=== PATIENT | male | born 1945 | race Caucasian/White ===

== ENCOUNTER 2016-11-26 07:59 | Emergency (ER) | payer MEDICARE, BC ==
[2016-11-26 08:41] LABS: BASOPHIL# 0.1 X 10^3uL (0.0-0.1); EOSINOPHILS 5.1 % (0.0-6.0); EOSINOPHILS# 0.5 X 10^3uL (0.0-0.4); HEMATOCRIT 39.1 % (42.0-54.0); LYMPHOCYTES 18.1 % (20.0-40.0); LYMPHOCYTES# 1.9 X 10^3uL (0.8-3.8); MEAN CORPUS. HGB CONCENTRATION 32.2 g/dL (32.0-36.0); MEAN CORPUSCULAR HEMOGLOBIN 26.4 pg (29.0-35.0); MONOCYTES# 1.1 X 10^3uL (0.2-1.0); NEUTROPHILS 65.1 % (54.0-75.0); NEUTROPHILS# 7.1 X 10^3uL (2.6-6.7); RED BLOOD COUNT 4.77 X 10^6uL (4.20-6.10); RED CELL DISTRIBUTION WIDTH 13.7 % (11.5-14.5); WHITE BLOOD COUNT 10.7 X 10^3uL (3.9-10.7)
[2016-11-26 08:42] LABS: CALCIUM 8.6 mg/dL (8.4-10.2); CREATININE 3.2 mg/dL (0.7-1.3); HEMOGLOBIN 12.6 g/dL (14.0-18.0); MAGNESIUM 1.8 mg/dL (1.6-2.3); MONOCYTES 10.7 % (2.0-10.0); POTASSIUM 4.9 mmol/L (3.5-5.1)
[2016-11-26 08:46] LABS: INR 2.3
[2016-11-26 08:54] LABS: TROPONIN I 0.013 ng/mL (0.00-0.034)
--- NOTE | 2016-11-26 10:41 | ER PHYSICIAN DOCUMENTATION ---
Physician Documentation [facility] Name:Rafael Acevedo Age:71 yrs Sex:Male :1945 Arrival Date:11/26/2016 Time:07:59 Bed4 Private MD:Elizabeth Mcwilliams ED, Scott Disposition: 11/26/16 09:39 Transfer ordered to [facility]. Diagnosis are Near Syncope: Postural, CHF (Congestive Heart Failure), Chronic Renal Failure/Insufficiency, End Stage Renal Disease. - Reason for transfer: Specialty. - Accepting physician is Dr. Faria. - Condition is Critical. - Problem is an acute exacerbation. - Symptoms are unchanged. COBRA Form completed? Yes Transfer - Mode of Transportation Helicopter HPI: 11/26 09:31 This 71 yrs old Male presents to ER via EMS with complaints of Dizziness. sc 09:31 The patient has experienced near-syncope, almost passed out. Onset: The va symptom(s)/episode began/occurred this morning. 09:32 Duration: This was a single episode. Context: occurred at home. Associated injury: The va patient did not suffer any apparent associated injury. Associated signs and symptoms: Pertinent positives: lightheadedness. Historical: - Allergies: No known drug Allergies; - Home Meds: 1. Novolin 70/30 [place] Sub-Q 2. Potassium Chloride Oral 3. Coumadin Oral 4. Folbig 5. Zolpidem Tartrate Oral 6. Omeprazole Oral 7. Furosemide Oral 8. Nitrostat SL 9. Triamcinolone Acetonide Topical 10. Aspirin Oral 11. Simvastatin 12. oxygen 2L/min at night only 13. levothyroxine oral 14. losartan oral 15. carvedilol oral - PMHx: Knee Contusion (October 15, 2016); CAD; CHF; DIABETES - IDDM; ATRIAL FIB; ARTHRITIS; KIDNEY STONES; Chest Pain (July 06, 2016); ANEMIA (July 06, 2016); Acute Renal/Kidney Failure, Nontraumatic (July 06, 2016); GERD; cardiac stents; - PSHx: Appendectomy; - Tetanus: Other NA today. - Ebola Screening: : No symptoms or risks identified at this time. . - Immunization history: Pneumococcal vaccine is up to date, Flu Vaccine < 1 year. - Social history: Smoking status: Patient states was never smoker of tobacco. Patient/guardian denies using alcohol. ROS: 09:34 Eyes: Negative for injury, pain, redness, and discharge. sc ENT: Negative for injury, pain, and discharge. Neck: Negative for injury, pain, and swelling. Respiratory: Negative for shortness of breath, cough, wheezing, and pleuritic chest pain. Abdomen/GI: Negative for abdominal pain, nausea, vomiting, diarrhea, and constipation. Back: Negative for injury and pain. MS/Extremity: Negative for injury and deformity. 09:34 Skin: Negative for injury, rash, and discoloration. sc 09:34 Constitutional: Positive for fatigue, malaise. 09:34 Cardiovascular: Positive for edema. 09:34 Neuro: Positive for near syncope. Exam: 09:34 Abdomen/GI: Inspection: abdomen appears normal, Bowel sounds: normal. sc Head/Face: Normocephalic, atraumatic. Eyes: Pupils equal round and reactive to light, extra-ocular motions intact. Lids and lashes normal. Conjunctiva and sclera are non-icteric and not injected. Cornea within normal limits. Periorbital areas with no swelling, redness, or edema. ENT: Nares patent. No nasal discharge, no septal abnormalities noted. Tympanic membranes are normal and external auditory canals are clear. Oropharynx with no redness, swelling, or masses, exudates, or evidence of obstruction, uvula midline. Mucous membranes moist. Neck: Trachea midline, no thyromegaly or masses palpated, and no cervical lymphadenopathy. Supple, full range of motion without nuchal rigidity, or vertebral point tenderness. No meningismus. Chest/axilla: Normal chest wall appearance and motion. Nontender with no deformity. No lesions are appreciated. Respiratory: Lungs have equal breath sounds bilaterally, clear to auscultation and percussion. No rales, rhonchi or wheezes noted. No increased work of breathing, no retractions or nasal flaring. Back: No spinal tenderness. No costovertebral tenderness. Full range of motion. 09:34 Skin: Warm, dry with normal turgor. Normal color with no rashes, no lesions, and no evidence of cellulitis. 09:34 Cardiovascular: Rate: bradycardic, Rhythm: regular, Pulses: Pulses are 2+ in right radial artery and left radial artery. Heart sounds: S1, S2, S3, Edema: 2+ edema to level of left ankle and right ankle, JVD: is noted bilaterally. Vital Signs: 08:10 BP 89 / 53; Pulse 50; Resp 22; Temp 97.2(O); Pulse Ox 92% on R/A; Weight 133.81 kg; nf Height 6 ft. 1 in. (185.42 cm); Pain 0/10; 08:56 BP 78 / 49; Pulse 40; nf 09:35 BP 90 / 53; Pulse 45; Resp 28; Pulse Ox 96% on 2 lpm NC; Pain 0/10; nf 10:31 BP 96 / 60; Pulse 48; Resp 20; Pulse Ox 97% on 2 lpm NC; Pain 0/10; nf 08:10 Body Mass Index 38.92 (133.81 kg, 185.42 cm) nf [place] Coma Score: 08:10 Eye Response: spontaneous(4). Verbal Response: oriented(5). Motor Response: obeys nf commands(6). Total: 15. MDM: 08:29 Patient medically screened. va 09:08 EKG attached nf 09:35 Differential Diagnosis: cardiac arrhythmia, drug effect, GI bleed, vasovagal episode, sc worsening chf and crf. Neurological re-evaluation: normal neurological exam including cranial nerves, orientation, mentation, motor and sensory exam, cerebellar testing, GCS normal, and normal gait. Data reviewed: vital signs, nurses notes, old medical records, lab test result(s), EKG, radiologic studies, and as a result, I will *Transfer Patient. ECG:. 09:54 Physician consultation: Dr. Deshpande was called at 09:55, was contacted at 09:55, va regarding patient's condition. 11/26 08:43 Order name: CBC AUTO DIF, MDIF/RMOR IF IND [facility] 11/26 08:51 Interpretation: Normal Except: HEMOGLOBIN 12.6; HEMATOCRIT 39.1. va 03 08:54 Order name: BASIC METABOLIC PANEL [facility] 11/26 08:58 Interpretation: Abnormal: BLOOD UREA NITROGEN 50; CREATININE 3.2. va 11/26 08:54 Order name: MAGNESIUM [facility] 11/26 08:58 Interpretation: Normal. va 03 08:55 Order name: BNP,NT-PRO [facility] 11/26 08:58 Interpretation: Abnormal: BNP,NT-PRO 2890. va 11/26 08:55 Order name: TROPONIN I [facility] 11/26 08:58 Interpretation: Normal. va 11/26 10:27 Order name: PROTIME/INR [facility] 11/26 08:20 Order name: 12-lead EKG; Complete Time: 08:39 nf 11/26 08:20 Order name: Continuous Cardiac Monitoring; Complete Time: 08:39 nf 11/26 08:20 Order name: I & O; Complete Time: 08:39 11/26 08:20 Order name: Iv Saline Lock; Complete Time: 08:39 nf 11/26 08:20 Order name: Oxygen; Complete Time: 08:39 nf 11/26 08:20 Order name: Pulse Ox Continuous; Complete Time: 08:39 11/26 08:20 Order name: Place Patient On Monitor; Complete Time: 08:39 nf EC:35 Rate is 45 beats/min. Rhythm is irregularly irregular, A fib with Left bundle branch sc block. QRS interval is prolonged. QT interval is prolonged. Q waves are Old. T waves are Flattened. No ST changes noted. Clinical impression: Atrial Fibrillation. Interpreted by me. Reviewed by me. Dispensed Medications: 08:10 Drug: NS 0.9% 250 ml; Route: IV; Rate: bolus; Site: left hand; nf 08:30 Follow up: IV Status: Completed infusion; IV Intake: 250ml nf 10:20 Drug: Dopamine drip 5 mcg/kg/min - (DOPamine 400 mg, D5W 250 ml); Route: IV; Rate: nf calculated rate; Site: left hand; 10:40 Follow up: IV Status: Infusing continued upon transfer nf Signatures: Julia Israel RN RN Chase Early MD MD va
--- NOTE | 2016-11-26 10:41 | ER NURSING DOCUMENTATION ---
Nurse's Notes [facility] Name:Rafael Acevedo Age:71 yrs Sex:Male :1945 Arrival Date:11/26/2016 Time:07:59 Bed4 Private MD:Elizabeth Mcwilliams Diagnosis:Near Syncope: Postural;CHF (Congestive Heart Failure);Chronic Renal Failure/Insufficiency;End Stage Renal Disease Presentation: 11/26 08:09 Transition of care: patient was not received from another setting of care. nf 08:09 Acuity: ABRAHAN 2 nf 08:09 Method Of Arrival: EMS: 410 nf 08:10 Care prior to arrival: IV initiated. gauge and site 20# left hand Glucose check. 116 IV nf Fluids given by EMS NS 250 ml Labs. 08:10 Presenting complaint: Presenting complaint: EMS states: patient feeling normal last nf night and this morning, had been up and about already this morning, upon rising to take medications became presyncopal multiple times, did not. 08:25 Notified ED Physician of patient's arrival and CC Dr. Wagner notified. nf Triage Assessment: 08:10 General: Appears in no apparent distress, well nourished, well groomed, Behavior is nf pleasant. Pain: Denies pain. 09:10 Neuro: No deficits noted. Cardiovascular: Capillary refill < 3 seconds Edema is 3+ to nf patient states this is normal for him Pulses are all present. Rhythm is a fib with LBBB. Respiratory: Respiratory effort is even, unlabored, Respiratory pattern is regular, Breath sounds with crackles bilaterally. in bases Denies cough, shortness of breath labored breathing, air hunger. GI: No deficits noted. Denies diarrhea, nausea, vomiting. : No deficits noted. Historical: - Allergies: No known drug Allergies; - Home Meds: 1. Novolin 70/30 [place] Sub-Q 2. Potassium Chloride Oral 3. Coumadin Oral 4. Folbig 5. Zolpidem Tartrate Oral 6. Omeprazole Oral 7. Furosemide Oral 8. Nitrostat SL 9. Triamcinolone Acetonide Topical 10. Aspirin Oral 11. Simvastatin 12. oxygen 2L/min at night only 13. levothyroxine oral 14. losartan oral 15. carvedilol oral - PMHx: Knee Contusion (October 15, 2016); CAD; CHF; DIABETES - IDDM; ATRIAL FIB; ARTHRITIS; KIDNEY STONES; Chest Pain (July 06, 2016); ANEMIA (July 06, 2016); Acute Renal/Kidney Failure, Nontraumatic (July 06, 2016); GERD; cardiac stents; - PSHx: Appendectomy; - Tetanus: Other NA today. - Ebola Screening: : No symptoms or risks identified at this time. . - Immunization history: Pneumococcal vaccine is up to date, Flu Vaccine < 1 year. - Social history: Smoking status: Patient states was never smoker of tobacco. Patient/guardian denies using alcohol. Screenin:10 Infectious Disease Risk None. Abuse screen: Denies threats or abuse. Nutritional nf screening: obese; states he has recently lost 40 pounds intentionally. Assessment: 08:10 See Triage Assessment done by same RN. nf 08:56 Reassessment: patient asymptomatic with HR and BP; DrChew aware of vital signs. nf Vital Signs: 08:10 BP 89 / 53; Pulse 50; Resp 22; Temp 97.2(O); Pulse Ox 92% on R/A; Weight 133.81 kg; nf Height 6 ft. 1 in. (185.42 cm); Pain 0/10; 08:56 BP 78 / 49; Pulse 40; nf 09:35 BP 90 / 53; Pulse 45; Resp 28; Pulse Ox 96% on 2 lpm NC; Pain 0/10; nf 10:31 BP 96 / 60; Pulse 48; Resp 20; Pulse Ox 97% on 2 lpm NC; Pain 0/10; nf 08:10 Body Mass Index 38.92 (133.81 kg, 185.42 cm) nf [place] Coma Score: 08:10 Eye Response: spontaneous(4). Verbal Response: oriented(5). Motor Response: obeys nf commands(6). Total: 15. ED Course: 08:01 Patient arrived in ED. arc 08:01 Elizabeth Mcwilliams MD is Private Physician. arc 08:09 Julia Israel RN is Primary Nurse. nf 08:09 Triage completed. nf 08:10 Labs drawn. By EMS Sent per order to lab. Oxygen Oxygen administration via nasal nf cannula @ 2L/min. 08:10 Arm band placed on Bed in low position Call Light in Reach Side rails up x1. Family nf accompanied patient. 08:10 Valuables Remains with patient. school lunch monitor on. Pulse ox on. NIBP on. Door closed. nf Noise minimized. Lights dimmed. Moved to private room. Diet: Patient is NPO. 08:15 EKG done. Reviewed by Chase Wagner MD. nf 08:29 Chase Wagner MD is Attending Physician. sc 08:37 Port Xray Completed. pm1 09:08 EKG attached nf Administered Medications: 08:10 Drug: NS 0.9% 250 ml; Route: IV; Rate: bolus; Site: left hand; nf 08:30 Follow up: IV Status: Completed infusion; IV Intake: 250ml nf 10:20 Drug: Dopamine drip 5 mcg/kg/min - (DOPamine 400 mg, D5W 250 ml); Route: IV; Rate: nf calculated rate; Site: left hand; 10:40 Follow up: IV Status: Infusing continued upon transfer nf Intake: 08:30 IV: 250ml; Total: 250ml. nf 10:20 PO: 30ml; IV: 250ml (NS); Total: 530ml. nf Output: 10:20 Urine: 0ml; Total: 0ml. nf Outcome: 09:39 ER care complete, transfer ordered by . id 10:30 Report given to Ck C[facility] Evan; bedside report nf 10:31 Transferred: Patient will be transferred to: [facility]. Other [id number] Facility Acceptance Time: November 26, 2016 at 10:15 Patient's face sheet was faxed to accepting facility. Face Sheet included patient's name, address, age, gender, contact information and insurance information. Patient will be transported by: [employer] [facility]. Nurse and Physician Charting and Notes were sent to Accepting Facility. All tests and/or procedures with results, if applicable, were sent to accepting facility. 10:31 Condition: stable 10:31 Discharge Assessment: Patient awake, alert and oriented x 3. No cognitive and/or functional deficits noted. Patient verbalized understanding of disposition instructions. 10:31 Discharge instructions given to patient, significant other, Instructed on need for transfer Demonstrated understanding of instructions, medications. 10:40 Patient left the ED. nf 10:52 Transferred: Report called to: phone report to Eric angel Signatures: Julia Israel RN RN nf Chew, Scott, MD MD id Enedina Almeida pm1 Chew, Gifty, Reg Reg arc
--- NOTE | 2016-11-28 14:11 | RADIOLOGY REPORT ---
A limited single portable view of the chest is compared with prior film dated . The cardiac silhouette is enlarged but stable. There has been interval development of central pulmonary vasculature prominence. The peripheral lung pillai are clear. No infiltrate, fluid or pneumothorax is seen. IMPRESSION: Constellation of findings raises concern for a degree of congestive failure. MTDD
== END 2016-11-26 10:41 | disposition short-term general hospital (02) ==
LOC: ER 07:59
DX: R55 Syncope and collapse (principal); I50.20 Unspecified systolic (congestive) heart failure; N18.6 End stage renal disease; R42 Dizziness and giddiness; I48.91 Unspecified atrial fibrillation; E11.9 Type 2 diabetes mellitus without complications; I25.10 Atherosclerotic heart disease of native coronary artery without angina pectoris; Z79.899 Other long term (current) drug therapy; Z79.01 Long term (current) use of anticoagulants; Z95.5 Presence of coronary angioplasty implant and graft; Z99.89 Dependence on other enabling machines and devices; Z74.3 Need for continuous supervision
CPT/HCPCS: 71010; 80048; 83735; 83880; 84484; 85025; 85610; 93010; 96365; 99285; A0425; A0427

== ENCOUNTER 2016-12-04 16:21 | Emergency (ER) | payer MEDICARE, BC ==
--- NOTE | 2016-12-04 17:24 | ER NURSING DOCUMENTATION ---
Nurse's Notes [facility] Name:Rafael Acevedo Age:71 yrs Sex:Male :1945 Arrival Date:12/04/2016 Time:16:21 Bed1 Private MD:Elizabeth Mcwilliams Diagnosis:Viral Upper Respiratory Infection (URI) Presentation: 12/04 16:23 Presenting complaint: Patient states: C/O cough, chills, tired, weak, and SOB. Started rs last week two days after being d/c from hosp for HTN medication. States he was given more HTN med than he was supposed to get and BP dropped. His grandson has a cough (lives with him), and spouse is ill with cold sx. He has a hx of pneumonia x 2, last was 5 yr ago. Doing well with po fluids. No fevers. Transition of care: Home. 16:23 Acuity: ABRAHAN 3 rs 16:23 Method Of Arrival: Private Vehicle rs Triage Assessment: 16:56 General: Appears uncomfortable, well developed, well groomed, Behavior is cooperative, rs Reports chills for feeling ill for > 3 days, Denies fever. Pain: Complains of pain in Generalized achiness. Neuro: No deficits noted. Level of Consciousness is awake, alert, Oriented to person, place, time, event, Under Ground Miner are equal bilaterally Moves all extremities. Gait is steady, Speech is normal, Reports weakness Denies blurred vision dizziness, paresthesias numbness headache. Cardiovascular: Capillary refill < 3 seconds Reports shortness of breath Denies lightheadedness, palpitations, syncope. Respiratory: Respiratory effort is even, slightly labored Respiratory pattern is regular, symmetrical, tachypnea Sputum is thin, clear Breath sounds are clear bilaterally. Reports shortness of breath cough that is Onset: The symptoms/episode began/occurred today, the patient has moderate shortness of breath. GI: No deficits noted. Abdomen is obese, Bowel sounds present X 4 quads. Denies diarrhea, nausea, vomiting. Derm: No deficits noted. Skin is pink, warm & dry. Historical: - Allergies: No known drug Allergies; - Home Meds: 1. Novolin 70/30 [place] Sub-Q 2. Potassium Chloride Oral 3. Coumadin Oral 4. Zolpidem Tartrate Oral 5. Omeprazole Oral 6. Furosemide Oral 7. Nitrostat SL 8. Triamcinolone Acetonide Topical 9. Aspirin Oral 10. Simvastatin Oral 11. oxygen 2L/min at night only 12. levothyroxine oral 13. losartan oral 14. carvedilol oral - Tetanus: unknown. - Ebola Screening: : Patient negative for fever greater than or equal to 101.5 degrees Fahrenheit, and additional compatible Ebola Virus Disease symptoms. Patient denies exposure to infectious person. Patient denies travel to an Ebola-affected area in the 21 days before illness onset. No symptoms or risks identified at this time. . - Immunization history: Pneumococcal vaccine is up to date, Flu Vaccine unknown. - Social history: Smoking status: Patient states was never smoker of tobacco. Patient/guardian denies using alcohol. Screenin:04 Infectious Disease Risk None. Abuse screen: Denies threats or abuse. Nutritional rs screening: diabetic diet. Pneumonia Screening: Productive Cough (5pts), Shortness of Breath (3pts), Hx. of Pneumonia (2pts). Total Score: 3 Pts. or > (High Risk). Assessment: 17:04 See Triage Assessment done by same RN. rs Vital Signs: 16:40 BP 142 / 72; Pulse 88; Resp 32; Temp 98.7; Pulse Ox 94% on R/A; Pain 4/10; rs 17:08 Weight 132.45 kg; Height 6 ft. (182.88 cm); rs 17:08 Body Mass Index 39.60 (132.45 kg, 182.88 cm) rs ED Course: 16:22 Patient arrived in ED. ds 16:22 Elizabeth Mcwilliams MD is Private Physician. ds 16:23 Chase Wagner MD is Attending Physician. sc 16:23 Crissy Hopson RN is Primary Nurse. rs 16:35 Bed in low position Call Light in Reach HOB Elevated Side rails up x1. Family rs accompanied patient. 16:42 Triage completed. rs 17:05 Pulse Ox - RN Monitoring Only. Door closed. Noise minimized. Lights dimmed. Verbal rs reassurance given. 17:06 Resting quietly. Awaiting lab results. rs 17:15 Elizabeth Mcwilliams MD is Referral Physician. sc Administered Medications: No medications were administered Outcome: 17:16 Discharge ordered by . sc 17:18 Discharged to home ambulatory. rs 17:18 Condition: stable 17:18 Instructed on discharge instructions, follow up and referral plans. 17:23 Patient left the ED. rs 12/06 11:54 Discharge F/U Call: Spoke with: patient. What is the one thing you feel we could do st to improve? Patient's answer: pt still feels very sick. We talked through making sure he was hydrated and OTC meds he can use. pt has a fallow up appointment on Sunday. Signatures: Ellen Montoya RN RN st Stalker, Rachael, RN RN rs ot, Chelsey, Reg Reg Chase Rodriguez MD MD sc
--- NOTE | 2016-12-04 17:24 | ER PHYSICIAN DOCUMENTATION ---
Physician Documentation [facility] Name:Rafael Acevedo Age:71 yrs Sex:Male :1945 Arrival Date:12/04/2016 Time:16:21 Bed1 Private MD:Elizabeth Mcwilliams ED, Scott Disposition: 12/04/16 17:16 Discharged to Home/Self Care. Impression: Viral Upper Respiratory Infection (URI). - Condition is Fair. - Discharge Instructions: VIRAL URI Adult - URI, Viral, No Abx (Adult), Fever - FEVER CONTROL (Adult). - Medical Reconciliation form form. - Follow up: Elizabeth Mcwilliams MD; When: As needed; Reason: If symptoms return, Worsening of condition. - Problem is new. - Symptoms are unchanged. HPI: 12/04 17:17 This 71 yrs old Male presents to ER via Private Vehicle with complaints of sc Weakness. 17:17 The patient or guardian reports cough, flu symptoms, arthralgias, myalgias. Onset: The sc symptom(s)/episode began/occurred yesterday. Severity of symptoms: At their worst the symptoms were mild. Associated signs and symptoms: Pertinent negatives: chest pain, fever, sore throat. several family members with uri sxs, pt wanted to be checked for flu. Historical: - Allergies: No known drug Allergies; - Home Meds: 1. Novolin 70/30 [place] Sub-Q 2. Potassium Chloride Oral 3. Coumadin Oral 4. Zolpidem Tartrate Oral 5. Omeprazole Oral 6. Furosemide Oral 7. Nitrostat SL 8. Triamcinolone Acetonide Topical 9. Aspirin Oral 10. Simvastatin Oral 11. oxygen 2L/min at night only 12. levothyroxine oral 13. losartan oral 14. carvedilol oral - Tetanus: unknown. - Ebola Screening: : Patient negative for fever greater than or equal to 101.5 degrees Fahrenheit, and additional compatible Ebola Virus Disease symptoms. Patient denies exposure to infectious person. Patient denies travel to an Ebola-affected area in the 21 days before illness onset. No symptoms or risks identified at this time. . - Immunization history: Pneumococcal vaccine is up to date, Flu Vaccine unknown. - Social history: Smoking status: Patient states was never smoker of tobacco. Patient/guardian denies using alcohol. ROS: 17:18 Eyes: Negative for injury, pain, redness, and discharge. ok ENT: Negative for injury, pain, and discharge. Neck: Negative for injury, pain, and swelling. Cardiovascular: Negative for chest pain, palpitations, and edema. Abdomen/GI: Negative for abdominal pain, nausea, vomiting, diarrhea, and constipation. MS/Extremity: Negative for injury and deformity. Skin: Negative for injury, rash, and discoloration. 17:18 Neuro: Negative for headache, weakness, numbness, tingling, and seizure. sc 17:18 Constitutional: Positive for body aches, chills. 17:18 Respiratory: Positive for cough, with no reported sputum. Exam: Constitutional: This is a well developed, well nourished patient who is awake, alert, and in no acute distress. Head/Face: Normocephalic, atraumatic. Eyes: Pupils equal round and reactive to light, extra-ocular motions intact. Lids and lashes normal. Conjunctiva and sclera are non-icteric and not injected. Cornea within normal limits. Periorbital areas with no swelling, redness, or edema. ENT: Nares patent. No nasal discharge, no septal abnormalities noted. Tympanic membranes are normal and external auditory canals are clear. Oropharynx with no redness, swelling, or masses, exudates, or evidence of obstruction, uvula midline. Mucous membranes moist. Neck: Trachea midline, no thyromegaly or masses palpated, and no cervical lymphadenopathy. Supple, full range of motion without nuchal rigidity, or vertebral point tenderness. No meningismus. Chest/axilla: Normal chest wall appearance and motion. Nontender with no deformity. No lesions are appreciated. Cardiovascular: Regular rate and rhythm with a normal S1 and S2. No gallops, murmurs, or rubs. Normal PMI, no JVD. No pulse deficits. Respiratory: Lungs have equal breath sounds bilaterally, clear to auscultation and percussion. No rales, rhonchi or wheezes noted. No increased work of breathing, no retractions or nasal flaring. Abdomen/GI: Soft, non-tender, with normal bowel sounds. No distension or tympany. No guarding or rebound. No evidence of tenderness throughout. Back: No spinal tenderness. No costovertebral tenderness. Full range of motion. Skin: Warm, dry with normal turgor. Normal color with no rashes, no lesions, and no evidence of cellulitis. MS/ Extremity: Pulses equal, no cyanosis. Neurovascular intact. Full, normal range of motion, negative Homans's, calves equal bilaterally. 17:19 Neuro: Awake and alert, GCS 15, oriented to person, place, time, and situation. sc Cranial nerves II-XII grossly intact. Motor strength 5/5 in all extremities. Sensory grossly intact. Cerebellar exam normal. Normal gait. 17:19 Respiratory: the patient does not display signs of respiratory distress, Respirations: tachypnea, on arrival, RR 16-20 at rest., Breath sounds: are normal, clear throughout. 17:21 Neuro: Orientation: is normal. ok Vital Signs: 16:40 BP 142 / 72; Pulse 88; Resp 32; Temp 98.7; Pulse Ox 94% on R/A; Pain 4/10; rs 17:08 Weight 132.45 kg; Height 6 ft. (182.88 cm); rs 17:08 Body Mass Index 39.60 (132.45 kg, 182.88 cm) rs MDM: 16:23 Patient medically screened. ok 17:19 Differential Diagnosis: Bronchitis Influenza Upper Respiratory Infection Pneumonia. ok Data reviewed: vital signs, nurses notes, old medical records, and as a result, I will discharge patient. Counseling: I had a detailed discussion with the patient and/or guardian regarding: the historical points, exam findings, and any diagnostic results supporting the discharge/admit diagnosis, the need for outpatient follow up, to return to the emergency department if symptoms worsen or persist or if there are any questions or concerns that arise at home, high risk for worsening because of ongoing poor health. 12/04 17:12 Order name: INFLUENZA A/B; Complete Time: 17:21 EDMS 12/04 17:21 Interpretation: Normal. sc Dispensed Medications: No medications were administered Signatures: Crissy Hopson RN RN rs Chase Wagner MD MD ok
== END 2016-12-04 17:24 | disposition home or self-care (01) ==
LOC: ER 16:21
DX: J06.9 Acute upper respiratory infection, unspecified (principal); M79.1 Myalgia; R68.83 Chills (without fever); Z87.01 Personal history of pneumonia (recurrent); Z79.01 Long term (current) use of anticoagulants; Z79.899 Other long term (current) drug therapy
CPT/HCPCS: 87449; 99281; 99282

== ENCOUNTER 2016-12-08 10:54 | Emergency (ER) | payer MEDICARE, BC ==
[2016-12-08] MEDS ORDERED: IPRATROPIUM/ALBUTEROL 0.5/3 MG 3 ML AMPUL.NEB INHALATION ONE (11:33)
[2016-12-08 11:34] LABS: BASOPHILS 0.4 % (0.0-2.0); EOSINOPHILS 2.4 % (0.0-6.0); EOSINOPHILS# 0.3 X 10^3uL (0.0-0.4); HEMATOCRIT 37.5 % (42.0-54.0); HEMOGLOBIN 12.9 g/dL (14.0-18.0); LYMPHOCYTES 9.1 % (20.0-40.0); MEAN CELL VOLUME 81.3 fL (80.0-100.0); MEAN CORPUS. HGB CONCENTRATION 34.3 g/dL (32.0-36.0); MEAN CORPUSCULAR HEMOGLOBIN 27.9 pg (29.0-35.0); MEAN PLATELET VOLUME 8.4 fL (7.4-10.4); MONOCYTES 15.5 % (2.0-10.0); MONOCYTES# 1.7 X 10^3uL (0.2-1.0); NEUTROPHILS 72.6 % (54.0-75.0); NEUTROPHILS# 7.7 X 10^3uL (2.6-6.7); RED BLOOD COUNT 4.61 X 10^6uL (4.20-6.10); RED CELL DISTRIBUTION WIDTH 13.7 % (11.5-14.5); WHITE BLOOD COUNT 10.7 X 10^3uL (3.9-10.7)
[2016-12-08 11:38] LABS: CALCIUM 8.6 mg/dL (8.4-10.2); CREATININE 4.4 mg/dL (0.7-1.3); POTASSIUM 4.6 mmol/L (3.5-5.1)
[2016-12-08 11:39] LABS: INR 2.2
--- NOTE | 2016-12-08 11:49 | RADIOLOGY REPORT ---
HISTORY: Shortness of breath. COMPARISON: 11/26/2016 FINDINGS: 1 view of the chest obtained. There is no consolidation. There is no pleural effusion. There is no pneumothorax. Mild cardiomegaly is noted, the mediastinal silhouette is unremarkable. There is mil d prominence of the central vessels with some associated reticular opacity. There is no focal lung p arenchymal nodule. There is no bone lesion. IMPRESSION: Cardiomegaly with probable congestive failure and pulmonary edema similar to previous study. Final Electronic Signature: This report was electronically signed by Hussein Veras MD, FACR on 2016 11:46 AM. nuvia /
[2016-12-08 11:51] LABS: TROPONIN I 0.015 ng/mL (0.00-0.034)
[2016-12-08] MEDS ORDERED: METHYLPREDNISOLONE SOD 125 MG/2 ML VIAL ONE (12:17)
--- NOTE | 2016-12-08 13:00 | ER NURSING DOCUMENTATION ---
Nurse's Notes [facility] Name:Rafael Acevedo Age:71 yrs Sex:Male :1945 Arrival Date:12/08/2016 Time:10:54 Bed4 Private MD:Elizabeth Mcwilliams Diagnosis:Hypotension;Renal Failure, Unspecified Presentation: 12/08 11:05 Presenting complaint: Patient states: SOB, wheezy, dizzy. REcent hospitalization for tg low BP at [facility]. Transition of care: patient was not received from another setting of care. Notified ED Physician of patient's arrival and CC Julien Sawyer notified. 11:05 Acuity: ABRAHAN 2 tg 11:05 Method Of Arrival: Private Vehicle tg 11:16 Presenting complaint: Patient states: Pt. was flown to [facility] last week for hypotension, ke has had SOB, coughing up clear sputum and wheezing for approximately 5 days. Also reports some blood in urine. Triage Assessment: 11:10 General: Appears ill, Behavior is cooperative. Pain: Denies pain. Neuro: Level of tg Consciousness is awake, alert, Reports dizziness. Cardiovascular: Chest pain is denied. Respiratory: Respiratory effort is labored, Breath sounds with wheezes Reports shortness of breath cough that is the patient has moderate shortness of breath. Derm: Skin is pale. 11:25 Respiratory: Airway is patent Trachea midline Respiratory effort is even, labored, with ke retractions, Respiratory pattern is regular, tachypnea Breath sounds are diminished in right upper lobe and right middle lobe Breath sounds with wheezes bilaterally. GI: Abdomen is non- distended obese, Bowel sounds present X 4 quads. Abd is soft and non tender X 4 quads. : No deficits noted. Musculoskeletal: Circulation, motion, and sensation intact Capillary refill < 3 seconds Range of motion limited in all extremities. Swelling other Edema 1+ to bilateral lower extremities. Historical: - Allergies: No known drug Allergies; - Home Meds: 1. levothyroxine oral 2. losartan oral 3. carvedilol oral 4. oxygen 2L/min at night only 5. Novolin 70/30 [place] Sub-Q 6. Potassium Chloride Oral 7. Coumadin Oral 8. Folbig 9. Zolpidem Tartrate Oral 10. Omeprazole Oral 11. Furosemide Oral 12. Nitrostat SL 13. Triamcinolone Acetonide Topical 14. Aspirin Oral 15. Simvastatin - PMHx: Knee Contusion (October 15, 2016); CAD; CHF; DIABETES - IDDM; ATRIAL FIB; ARTHRITIS; KIDNEY STONES; Chest Pain (July 06, 2016); ANEMIA (July 06, 2016); Acute Renal/Kidney Failure, Nontraumatic (July 06, 2016); GERD; cardiac stents; Near Syncope: Postural (November 26, 2016); CHF (Congestive Heart Failure)(November 26, 2016); Chronic Renal Failure/Insufficiency (November 26, 2016); End Stage Renal Disease (November 26, 2016); - PSHx: APPENDECTOMY; - Tetanus: < 10 years. - Ebola Screening: : Patient negative for fever greater than or equal to 101.5 degrees Fahrenheit, and additional compatible Ebola Virus Disease symptoms. Patient denies exposure to infectious person. Patient denies travel to an Ebola-affected area in the 21 days before illness onset. No symptoms or risks identified at this time. . - Immunization history: Pneumococcal vaccine status is unknown, Flu Vaccine < 1 year. - Social history: Smoking status: Patient states was never smoker of tobacco. Screenin:15 Infectious Disease Risk Unable to Obtain. Abuse screen: Denies threats or abuse. Denies tg injuries from another. Nutritional screening: No deficits noted. Assessment: 11:31 See Triage Assessment done by same RN. ke 11:40 Reassessment: Pt. feeling slightly better after neb complete. Wheezing somewhat less ke notable now.. 11:56 Reassessment: Lab into room to draw second set of cultures. ke 12:28 Reassessment: [facility] does not have a bed assigned yet, and has asked that the tg transfer be held until there is a bed assigned. They will call back.. 12:30 Reassessment: Called [facility] - have accepting MD, awaiting bed assignment.. ke 12:50 Reassessment: Patient states symptoms have not improved. Pt. ambulated to the bathroom ke - did become increasingly SOB while walking.. Vital Signs: 11:02 BP 83 / 54; Pulse 67; Resp 24; Temp 98.3(O); Pulse Ox 87% on R/A; Weight 132.45 kg (R); tg Height 6 ft. 1 in. (185.42 cm) (R); Pain 0/10; 11:15 BP 98 / 35; Pulse 63; Resp 24; Pulse Ox 94% on 2 lpm NC; ke 11:35 BP 88 / 53; Pulse 60; Resp 18; Pulse Ox 93% on 2 lpm NC; ke 11:50 BP 88 / 46; Pulse 60; Resp 20; Pulse Ox 93% on 2 lpm NC; ke 12:05 BP 82 / 48; Pulse 60; Resp 16; Pulse Ox 95% on 2 lpm NC; ke 12:20 BP 88 / 49; Pulse 57; Resp 20; Pulse Ox 92% on 2 lpm NC; ke 12:35 BP 95 / 49; Pulse 58; Resp 21; Pulse Ox 92% on 2 lpm NC; ke 12:45 BP 86 / 53; Pulse 55; Resp 20; Pulse Ox 95% on 2 lpm NC; ke 11:02 Body Mass Index 38.52 (132.45 kg, 185.42 cm) tg ED Course: 10:59 Patient arrived in ED. lm3 10:59 Elizabeth Mcwilliams MD is Private Physician. lm3 11:00 EKG done. (by ED staff). Reviewed by Roel Victoria MD. tg 11:05 Gerald Maxwell, ABDULLAHI is Primary Nurse. tg 11:06 Triage completed. tg 11:07 Roel Victoria MD is Attending Physician. jm 11:14 First set of blood cultures drawn by me. Inserted peripheral IV: 20 gauge in right tg antecubital area and blood collected. Oxygen Oxygen administration via nasal cannula @ 2L/min. 11:15 Valuables Remains with patient Patient has correct armband on for positive tg identification. Placed in gown. Bed in low position. Call light in reach. Side rails up X 1. Adult w/ patient. cardiac monitor on. Pulse ox on. NIBP on. 11:30 Notified ED Physician of patient's arrival and chief complaint. Dr. Victoria notified. ke 11:33 EKG attached ke 12:22 EKG attached ke Administered Medications: 11:25 Drug: DuoNeb (Albuterol 2.5 mg, Atrovent 0.5 mg); 3 ml; Route: Nebulizer; Infused Over: ke 10 mins; 11:56 Follow up: Response: Wheezing diminished ke 11:56 Drug: NS 0.9% 500 ml; Route: IV; Rate: bolus; Site: right antecubital; ke 12:42 Follow up: IV Status: Completed infusion; IV Intake: 500ml tg 12:53 Follow up: Rate change 100 ml/hr; IV Status: Infusing continued upon transfer; IV ke Intake: 550ml 12:41 Drug: Solu-MEDROL 125 mg; Route: IVP; Site: right antecubital; tg 12:42 Follow up: Response: No adverse reaction tg Intake: 12:42 IV: 500ml; Total: 500ml. tg 12:53 IV: 550ml; Total: 1050ml. ke Outcome: 12:31 ER care complete, transfer ordered by . gaye 12:57 [facility] [place] ke Acceptance Time: December 08, 2016 at 12:50 Patient's face sheet was faxed to accepting facility. Face Sheet included patient's name, address, age, gender, contact information and insurance information. Patient will be transported by: [facility]. Nurse and Physician Charting and Notes were sent to Accepting Facility. All tests and/or procedures with results, if applicable, were sent to accepting facility. 12:57 Condition: improved 12:57 Report given to EPAS crew prior to transport 12:57 Discharge Assessment: Patient awake and alert. Oriented to person, place and time. Patient verbalized understanding of disposition instructions. Patient 12:57 Discharge instructions given to patient, Instructed on need for transfer 12:59 Patient left the ED. ke 14:47 Report given to Ashley FERNANDO. ke Signatures: Gerald Maxwell RN Roel Walters MD MD jm Evens, Kerry, RN RN ke McKibbon-Moore, Lisa 3
--- NOTE | 2016-12-08 13:00 | ER PHYSICIAN DOCUMENTATION ---
Physician Documentation [facility] Name:Rafael Acevedo Age:71 yrs Sex:Male :1945 Arrival Date:12/08/2016 Time:10:54 Bed4 Private MD:Elizabeth Mcwilliams ED, John Disposition: 12/08/16 12:31 Transfer ordered to [facility]. Diagnosis are Hypotension, Renal Failure, Unspecified. - Reason for transfer: Higher level of care. - Accepting physician is Dr. Hines. - Condition is Serious. - Problem is new. - Symptoms have worsened. COBRA Form completed? Yes Transfer - Mode of Transportation Ambulance HPI: 12/08 12:06 This 71 yrs old Male presents to ER via Private Vehicle with complaints of jm Dizziness, Wheezing < 1 Year. 12:06 The patient presents with dizziness, generalized weakness. Onset: The jm symptom(s)/episode began/occurred today. Context: occurred while the patient was walking. Modifying factors: the symptoms are aggravated by changing position. Associated signs and symptoms: Pertinent positives: near-syncope, shortness of breath. Severity of symptoms: in the emergency department the symptoms are unchanged. The patient has experienced a previous episode. The patient has been recently seen by a physician: Pt was flown to [facility] for hypotension, bradycardia, and ELADIO. He was on a dopamine drip during the flight, but was taken off when he got there and did will w medication adjustments. This was 2 weeks ago. Last week, he came to [facility] for viral URI, but this has gotten worse and now pt is SOB. It took 45 minutes for the pt to get out of bed, walk down the stairs and get into the car to come to the ER. Pt states he is dizzy and SOB. . Historical: - Allergies: No known drug Allergies; - Home Meds: 1. levothyroxine oral 2. losartan oral 3. carvedilol oral 4. oxygen 2L/min at night only 5. Novolin 70/30 [place] Sub-Q 6. Potassium Chloride Oral 7. Coumadin Oral 8. Folbig 9. Zolpidem Tartrate Oral 10. Omeprazole Oral 11. Furosemide Oral 12. Nitrostat SL 13. Triamcinolone Acetonide Topical 14. Aspirin Oral 15. Simvastatin - PMHx: Knee Contusion (October 15, 2016); CAD; CHF; DIABETES - IDDM; ATRIAL FIB; ARTHRITIS; KIDNEY STONES; Chest Pain (July 06, 2016); ANEMIA (July 06, 2016); Acute Renal/Kidney Failure, Nontraumatic (July 06, 2016); GERD; cardiac stents; Near Syncope: Postural (November 26, 2016); CHF (Congestive Heart Failure)(November 26, 2016); Chronic Renal Failure/Insufficiency (November 26, 2016); End Stage Renal Disease (November 26, 2016); - PSHx: APPENDECTOMY; - Tetanus: < 10 years. - Ebola Screening: : Patient negative for fever greater than or equal to 101.5 degrees Fahrenheit, and additional compatible Ebola Virus Disease symptoms. Patient denies exposure to infectious person. Patient denies travel to an Ebola-affected area in the 21 days before illness onset. No symptoms or risks identified at this time. . - Immunization history: Pneumococcal vaccine status is unknown, Flu Vaccine < 1 year. - Social history: Smoking status: Patient states was never smoker of tobacco. ROS: 12:08 Constitutional: Positive for fatigue. jm 12:08 ENT: Positive for sinus congestion. 12:08 Neck: Negative for swelling, swollen nodes. 12:08 Cardiovascular: Negative for chest pain, edema. 12:08 Respiratory: Positive for cough, dyspnea on exertion, shortness of breath. 12:08 Abdomen/GI: Negative for abdominal pain, nausea, vomiting, diarrhea. 12:08 : Negative for urinary symptoms. 12:08 MS/extremity: Negative for swelling, tenderness. 12:08 Skin: Negative for rash. 12:08 Neuro: Positive for dizziness, weakness, Negative for headache. 12:08 Psych: Negative for alcohol dependence, auditory hallucinations. 12:08 All other systems are negative. Exam: 12:10 Constitutional: The patient appears alert, awake, comfortable, obese. jm 12:10 Eyes: Periorbital structures: appear normal, Conjunctiva: normal. 12:10 ENT: Mouth: is normal, Voice: is hoarse. 12:10 Cardiovascular: Rate: normal, Rhythm: regular, Edema: 1+ edema to level of left ankle and right ankle. 12:10 Respiratory: Respirations: normal, Breath sounds: wheezing, that is moderate, is heard diffusely. 12:10 Abdomen/GI: Bowel sounds: normal, Palpation: abdomen is soft and non-tender. 12:10 Back: CVA tenderness, is absent, vertebral tenderness, is not appreciated. 12:10 Musculoskeletal/extremity: DVT Exam: No signs of deep vein thrombosis. Calves: are non-tender, have equal circumference. 12:10 Neuro: Mentation: is normal, Memory: is normal. 12:10 Psych: Behavior/mood is pleasant, cooperative, Affect is calm. Vital Signs: 11:02 BP 83 / 54; Pulse 67; Resp 24; Temp 98.3(O); Pulse Ox 87% on R/A; Weight 132.45 kg (R); tg Height 6 ft. 1 in. (185.42 cm) (R); Pain 0/10; 11:15 BP 98 / 35; Pulse 63; Resp 24; Pulse Ox 94% on 2 lpm NC; ke 11:35 BP 88 / 53; Pulse 60; Resp 18; Pulse Ox 93% on 2 lpm NC; ke 11:50 BP 88 / 46; Pulse 60; Resp 20; Pulse Ox 93% on 2 lpm NC; ke 12:05 BP 82 / 48; Pulse 60; Resp 16; Pulse Ox 95% on 2 lpm NC; ke 12:20 BP 88 / 49; Pulse 57; Resp 20; Pulse Ox 92% on 2 lpm NC; ke 12:35 BP 95 / 49; Pulse 58; Resp 21; Pulse Ox 92% on 2 lpm NC; ke 12:45 BP 86 / 53; Pulse 55; Resp 20; Pulse Ox 95% on 2 lpm NC; ke 11:02 Body Mass Index 38.52 (132.45 kg, 185.42 cm) tg MDM: 11:07 Patient medically screened. 11:33 EKG attached ke 12:11 Differential diagnosis: generalized weakness, near-syncope, sepsis, ELADIO. Data reviewed: vital signs, nurses notes, old medical records, lab test result(s), EKG, radiologic studies, and as a result, I will *Transfer Patient. Test interpretation: by ED physician or midlevel provider: plain radiologic studies, ECG. Counseling: I had a detailed discussion with the patient and/or guardian regarding: the historical points, exam findings, and any diagnostic results supporting the discharge/admit diagnosis, lab results, radiology results, the need to transfer to another facility. ECG:. Medication response: albuterol nebulizer treatment(s) partially relieved the patient's wheezing. Response to treatment: the patient's symptoms have mildly improved after treatment. ED course: Pt's ELADIO is worse than when he was flown out before. His pressures remain stable in the upper 80's and low 90's. CXR/EKG WNL. Lactate is 1.6 and w/o matching SIRS criteria, I do not believe pt is septic. Pt given 500ml bolus and will receive another 500cc down the hill. Dr. Hines at [facility] has accepted pt to the ICU. . 12:22 EKG attached ke 12:28 Physician consultation: Dr. Hines was called at 12:15, was contacted at 12:23. 12/08 11:39 Order name: BASIC METABOLIC PANEL; Complete Time: 11:55 [facility] 12/08 11:39 Order name: LACTATE; Complete Time: 11:46 [facility] 12/08 11:40 Order name: CBC AUTO DIF, MDIF/RMOR IF IND; Complete Time: 11:55 [facility] 12/08 11:41 Order name: PROTIME/INR; Complete Time: 11:55 [facility] 12/08 11:51 Order name: BNP,NT-PRO; Complete Time: 11:55 [facility] 12/08 11:51 Order name: TROPONIN I; Complete Time: 11:55 [facility] 12/08 11:49 Order name: CHEST; [place] [id number]; Complete Time: 11:55 [facility] 12/08 11:14 Order name: 12-lead EKG; Complete Time: 11: 12/08 11:14 Order name: Continuous Cardiac Monitoring; Complete Time: 11: 12/08 11:14 Order name: I & O; Complete Time: : 12/08 11:14 Order name: Iv Saline Lock; Complete Time: 11: 12/08 11:14 Order name: Oxygen; Complete Time: 11: 12/08 11:14 Order name: Pulse Ox Continuous; Complete Time: :20 EC:11 Rhythm is irregularly irregular. RI interval is normal. QRS interval is normal. QT jm interval is normal. T waves are Normal. No ST changes noted. Dispensed Medications: 11:25 Drug: DuoNeb (Albuterol 2.5 mg, Atrovent 0.5 mg); 3 ml; Route: Nebulizer; Infused Over: ke 10 mins; 11:56 Follow up: Response: Wheezing diminished ke 11:56 Drug: NS 0.9% 500 ml; Route: IV; Rate: bolus; Site: right antecubital; ke 12:42 Follow up: IV Status: Completed infusion; IV Intake: 500ml tg 12:53 Follow up: Rate change 100 ml/hr; IV Status: Infusing continued upon transfer; IV ke Intake: 550ml 12:41 Drug: Solu-MEDROL 125 mg; Route: IVP; Site: right antecubital; tg 12:42 Follow up: Response: No adverse reaction tg Signatures: Gerald Maxwell RN RN tg Roel Victoria MD MD jm Evens, Kerry, RN RN ke
== END 2016-12-08 13:00 | disposition short-term general hospital (02) ==
LOC: ER 10:54
DX: I95.9 Hypotension, unspecified (principal); N19 Unspecified kidney failure; R06.02 Shortness of breath; R53.1 Weakness; R42 Dizziness and giddiness; R05 Cough; R06.00 Dyspnea, unspecified; J34.89 Other specified disorders of nose and nasal sinuses; R55 Syncope and collapse; R53.83 Other fatigue; R06.2 Wheezing; R60.0 Localized edema; E11.9 Type 2 diabetes mellitus without complications; I48.91 Unspecified atrial fibrillation; I50.9 Heart failure, unspecified; Z79.01 Long term (current) use of anticoagulants; Z79.82 Long term (current) use of aspirin; Z79.899 Other long term (current) drug therapy; Z99.89 Dependence on other enabling machines and devices; Z74.3 Need for continuous supervision
CPT/HCPCS: 71010; 80048; 83605; 83880; 84484; 85025; 85610; 87040; 93005; 94640; 96361; 96374; 99285; A0425; A0427; J2930; J7620

== ENCOUNTER 2017-02-02 08:25 | Emergency (ER) | payer MEDICARE, BC ==
[2017-02-02 09:28] LABS: BASOPHIL# 0.1 X 10^3uL (0.0-0.1); EOSINOPHILS 6.7 % (0.0-6.0); EOSINOPHILS# 0.7 X 10^3uL (0.0-0.4); HEMATOCRIT 35.3 % (42.0-54.0); LYMPHOCYTES 18.3 % (20.0-40.0); LYMPHOCYTES# 1.9 X 10^3uL (0.8-3.8); MEAN CORPUS. HGB CONCENTRATION 33.9 g/dL (32.0-36.0); MEAN CORPUSCULAR HEMOGLOBIN 27.8 pg (29.0-35.0); MEAN PLATELET VOLUME 8.7 fL (7.4-10.4); MONOCYTES 6.7 % (2.0-10.0); MONOCYTES# 0.7 X 10^3uL (0.2-1.0); NEUTROPHILS 67.3 % (54.0-75.0); NEUTROPHILS# 6.9 X 10^3uL (2.6-6.7); RED BLOOD COUNT 4.3 X 10^6uL (4.20-6.10); RED CELL DISTRIBUTION WIDTH 13.7 % (11.5-14.5); WHITE BLOOD COUNT 10.3 X 10^3uL (3.9-10.7)
[2017-02-02 09:35] LABS: A/G RATIO 0.9; ALBUMIN 3.6 g/dL (3.5-5.0); BILIRUBIN, TOTAL 0.7 mg/dL (0.2-1.3); CALCIUM 8.5 mg/dL (8.4-10.2); INR 1.9; MAGNESIUM 1.7 mg/dL (1.6-2.3); POTASSIUM 4.1 mmol/L (3.5-5.1); TOTAL PROTEIN 7.8 g/dL (6.3-8.2)
[2017-02-02 09:46] LABS: TROPONIN I 0.014 ng/mL (0.00-0.034)
[2017-02-02 10:05] LABS: THYROID STIMULATING HORMONE 2.12 uIU/mL (0.47-4.68)
--- NOTE | 2017-02-02 10:19 | RADIOLOGY REPORT ---
HISTORY: Central chest pain. COMPARISON: December 08, 2016 portable chest FINDINGS: There is unchanged mild cardiomegaly. No pneumothorax is seen. There is prominence of the bilateral central pulmonary vasculature. Osteopenic bones are noted. IMPRESSION: Mild bilateral central pulmonary vascular congestion. Final Electronic Signature: This report was electronically signed by Christian Cooper MD on 017 10:17 AM. gigi /
--- NOTE | 2017-02-02 12:56 | ER PHYSICIAN DOCUMENTATION ---
Physician Documentation [facility] Name:Rafael Acevedo Age:71 yrs Sex:Male :1945 Arrival Date:02/02/2017 Time:08:25 BedTrauma-C Private MD:Elizabeth Mcwilliams ED, Tom Disposition: 02/02 10:55 Chart complete. tl1 Disposition: 02/02/17 10:57 Transfer ordered to [facility]. Diagnosis are Orthostatic Hypotension, Atrial Fibrillation. - Reason for transfer: Specialty. - Accepting physician is Dr Grimaldo. - Condition is Good. - Problem is an ongoing problem. - Symptoms have improved. COBRA Form completed? Yes Transfer - Mode of Transportation Ambulance HPI: 08:40 This 71 yrs old Male presents to ER via Wheelchair with complaints of tl1 Dizziness, Blood Pressure Problem. 08:40 The patient presents with dizziness, lightheadedness. Onset: The symptom(s)/episode tl1 began/occurred suddenly, yesterday. Context: occurred at home. Severity of symptoms: At their worst the symptoms were moderate in the emergency department the symptoms are unchanged. He has MMP with CRI, DM, CHF, morbid obesity, . He has had what sounds like orthostatic hypotension for several months. Yesterday he was lightheaded most of the afternoon on standing up. This recurred again this AM and he presented to the clinic for generalized weakness and lightheadedness on standing. Denies palpitations, chest pain, f/c/s/cough/n/v/diaphoresis. Denies melena, hematochezia or hematemesis.. Historical: - Allergies: No known drug Allergies; - Home Meds: 1. levothyroxine oral 2. losartan oral 3. carvedilol oral 4. oxygen 2L/min at night only 5. Novolin 70/30 [place] Sub-Q 6. Potassium Chloride Oral 7. Coumadin Oral 8. Folbig 9. Zolpidem Tartrate Oral 10. Omeprazole Oral 11. Furosemide Oral 12. Nitrostat SL 13. Triamcinolone Acetonide Topical 14. Aspirin Oral 15. Zolpidem Tartrate Oral 16. Zolpidem Tartrate Oral 17. Omeprazole Oral 18. Furosemide Oral 19. Nitrostat SL 20. Triamcinolone Acetonide Topical 21. Aspirin Oral - PMHx: Knee Contusion (October 15, 2016); CAD; CHF; DIABETES - IDDM; ATRIAL FIB; ARTHRITIS; KIDNEY STONES; Chest Pain (July 06, 2016); ANEMIA (July 06, 2016); Acute Renal/Kidney Failure, Nontraumatic (July 06, 2016); GERD; cardiac stents; Chronic Renal Failure/Insufficiency (November 26, 2016); End Stage Renal Disease (November 26, 2016); Hypotension (December 08, 2016); Renal Failure, Unspecified (December 08, 2016); - PSHx: APPENDECTOMY; - Tetanus: < 10 years. - Ebola Screening: : Patient negative for fever greater than or equal to 101.5 degrees Fahrenheit, and additional compatible Ebola Virus Disease symptoms. Patient denies exposure to infectious person. Patient denies travel to an Ebola-affected area in the 21 days before illness onset. No symptoms or risks identified at this time. . - Immunization history: Unable to Obtain. - Social history: Smoking status: unknown if patient ever smoked tobacco. ROS: 10:46 Cardiovascular: Negative for chest pain, edema, orthopnea, palpitations, paroxysmal tl1 nocturnal dyspnea, acute changes. 10:46 Cardiovascular: Positive for edema, Negative for 10:46 Respiratory: Negative for shortness of breath, sputum production, wheezing. 10:46 Abdomen/GI: Negative for abdominal pain, nausea, vomiting, diarrhea, abdominal cramps, hematemesis, black/tarry stool, rectal bleeding. 10:46 Neuro: Positive for altered mental status, headache, numbness, near syncope, visual changes, weakness, Negative for altered mental status, headache, loss of consciousness, speech changes. 10:46 All other systems are negative. Exam: 10:47 Constitutional: The patient appears alert, awake, non-diaphoretic, well nourished, tl1 comatose, obese, uncomfortable. 10:47 Head/face: Exam is negative for acute changes. 10:47 Eyes: Exam is negative for acute changes. 10:47 Chest/axilla: Inspection: normal. 10:47 Cardiovascular: Rate: bradycardic, Rhythm: irregularly irregular, Heart sounds: normal, Edema: is not appreciated, JVD: is not appreciated. 10:47 Cardiovascular: Edema: 2+ edema to level of left midcalf and right midcalf. 10:47 Respiratory: the patient does not display signs of respiratory distress, Respirations: normal, Breath sounds: are normal. 10:47 Abdomen/GI: Inspection: abdomen appears normal, Bowel sounds: normal, Palpation: nontender. 10:47 Musculoskeletal/extremity: Extremities: 10:47 Skin: Exam negative for acute changes. 10:47 Neuro: Exam negative for acute changes, Orientation: is normal, appropriate for stated age, Mentation: is normal, Cranial nerves: grossly normal, Cerebellar function: not tested, Motor: moves all fours, Gait: not tested. Vital Signs: 08:34 BP 108 / 56; Pulse 42; Resp 16; Temp 97.9; Pulse Ox 92% on R/A; Weight 129.27 kg; rs Height 6 ft. 1 in. (185.42 cm); Pain 0/10; 08:45 BP 97 / 64; Pulse 49; Resp 21; Pulse Ox 92% on R/A; Pain 0/10; rs 09:10 BP 123 / 74; Pulse 46; Resp 18; Pulse Ox 92% on R/A; Pain 0/10; rs 09:15 BP 120 / 76; Pulse 62; Resp 30; Pulse Ox 92% on R/A; Pain 0/10; rs 09:23 BP 117 / 85; Pulse 60; Resp 18; Pulse Ox 97% on 2 lpm NC; Pain 0/10; rs 09:26 BP 112 / 73; Pulse 64; Resp 24; Pulse Ox 97% on 2 lpm NC; Pain 0/10; rs 09:30 BP 126 / 77; Pulse 62; Resp 15; Pulse Ox 97% on 2 lpm NC; Pain 0/10; rs 09:45 BP 117 / 63; Pulse 65; Resp 15; Pulse Ox 95% on 2 lpm NC; Pain 0/10; rs 10:15 BP 106 / 63; Pulse 62; Resp 19; Pulse Ox 97% on 2 lpm NC; Pain 0/10; rs 10:30 BP 100 / 61; Pulse 47; Resp 21; Pulse Ox 98% on 2 lpm NC; Pain 0/10; rs 10:45 BP 108 / 60; Pulse 64; Resp 16; Pulse Ox 98% on 2 lpm NC; Pain 0/10; rs 11:00 BP 117 / 69; Pulse 61; Resp 16; Pulse Ox 99% on 2 lpm NC; Pain 0/10; rs 11:15 BP 116 / 68; Pulse 53; Resp 17; Pulse Ox 99% on 2 lpm NC; Pain 0/10; rs 11:44 BP 121 / 57; Pulse 61; Resp 21; Pulse Ox 97% on 2 lpm NC; Pain 0/10; rs 08:34 Body Mass Index 37.60 (129.27 kg, 185.42 cm) rs MDM: 08:37 Medication response: The patient's symptoms have improved, ATROPINE. Response to tl1 treatment: the patient's symptoms have mildly improved after treatment, and as a result, I will admit patient. Physician consultation: Dr Grimaldo was called at 10:30, was contacted at 10:32, regarding admission, patient's condition, and will see patient at [facility]. after a discussion of the case, a recommendation for transfer for higher level of care is made. 08:54 Patient medically screened. tl1 10:50 Differential diagnosis: cardiac arrhythmia, generalized weakness, hypovolemia, tl1 near-syncope, vertigo. Data reviewed: vital signs, nurses notes, old medical records, and as a result, I will *Transfer Patient. Data interpreted: mine superintendent: Pulse oximetry:. Test interpretation: by ED physician or midlevel provider: plain radiologic studies, ECG. Counseling: I had a detailed discussion with the patient and/or guardian regarding: the historical points, exam findings, and any diagnostic results supporting the discharge/admit diagnosis, lab results, radiology results, the need to transfer to another facility. ECG:. 11:00 ED course: Atropine caused about a 10 point increase in his pulse with some improvement tl1 in his dizziness. He was otherwise hemodynamically stable with a SBP generally about 110. 14:04 EKG attached 02/02 09:31 Order name: CBC AUTO DIF, MDIF/RMOR IF IND; Complete Time: 10:38 EDMS 02/02 10:21 Interpretation: WHITE BLOOD COUNT 10.3; HEMOGLOBIN 12.0; HEMATOCRIT 35.3; PLATELET tl1 COUNT 234; EOSINOPHILS 6.7. 02/02 09:38 Order name: COMPREHENSIVE METABOLIC PANEL; Complete Time: 10:38 EDMS 02/02 10:22 Interpretation: SODIUM 136; POTASSIUM 4.1; CHLORIDE 98; CARBON DIOXIDE 24; GLUCOSE 253; tl1 BLOOD UREA NITROGEN 57; CREATININE 3.0. 02/02 09:38 Order name: MAGNESIUM; Complete Time: 10:38 EDMS 02/02 10:22 Interpretation: Normal: MAGNESIUM 1.7. [facility] 02/02 09:39 Order name: PROTIME/INR; Complete Time: 10:38 EDMS 02/02 10:22 Interpretation: PROTIME 23.6; INR 1.9. [facility] 02/02 10:18 Order name: BNP,NT-PRO; Complete Time: 10:38 EDMN 02/02 10:27 Interpretation: Abnormal: BNP,NT-PRO 2480. 1 02/02 10:18 Order name: TROPONIN I; Complete Time: 10:38 EDMS 02/02 10:18 Order name: THYROID STIMULATING HORMONE; Complete Time: 10:38 EDMN 02/02 10:08 Order name: CHEST; [place] [id number]; Complete Time: 10:38 EDMN 02/02 10:26 Interpretation: CHF, CARDIOMEGALY. [facility] 02/02 10:20 Order name: CHEST; [place] [id number]; Complete Time: 10:38 EDMN 02/02 19:25 Interpretation: pulmonary vascular congestion, c/w CHF. [facility] 02/02 09:00 Order name: EKG - 12 Lead; Complete Time: 10:02 tl1 EC:37 Rate is 51 beats/min. Rhythm is irregularly irregular. Left axis deviation noted. QRS tl1 is negative in leads II, III, aVF, aVR, V1, V2, V3, V4, V5, V6. QRS interval is prolonged at 149 msec. QT interval is normal at 500 msec. Q waves are Present in leads III, aVF, V1, V2, V3, V4. T waves are Normal. No ST changes noted. Clinical impression: Atrial Fibrillation and LBB. Interpreted by me. Reviewed by me. Dispensed Medications: Completed: NS 0.9% 1000 ml 1000 ml IV at bolus in right antecubital once via [place] [facility] 09:20 Drug: NS 0.9% 1000 ml; Volume: 1000 ml; Route: IV; Rate: bolus; Site: right rs antecubital; Delivery: [place] [facility]; 11:37 Follow up: IV Status: Completed infusion; IV Intake: 600ml rs 09:22 Drug: Atropine:ADULT (with Bradycardia) 0.5 mg; Route: IVP; Rate: bolus; Infused Over: rs 1 mins; Site: right subclavian; 11:37 Follow up: Response: No adverse reaction 09:30 Drug: Atropine 0.5 mg; Route: IVP; Rate: bolus; Infused Over: 1 mins; Site: right rs antecubital; 11:37 Follow up: Response: No adverse reaction rs Critical care time excluding procedures: 10:55 Critical care time: Bedside Care: 15 minutes, Consultation: 10 minutes, Family tl1 Intervention: 5 minutes. Total time: 30 minutes Signatures: Crissy Hopson RN RN rs Leigh, Tom, MD MD tl1 Kasey Donohue
--- NOTE | 2017-02-02 12:56 | ER NURSING DOCUMENTATION ---
Nurse's Notes [facility] Name:Rafael Acevedo Age:71 yrs Sex:Male :1945 Arrival Date:02/02/2017 Time:08:25 BedTrauma-C Private MD:Elizabeth Mcwilliams Diagnosis:Orthostatic Hypotension;Atrial Fibrillation Presentation: 02/02 08:42 Presenting complaint: Latricia RN [facility] states: He presented to clinic rs c/o lightheadedness. HR was 40's, and no hx of bradycardia. No CP, and no SOB. Transition of care: patient was not received from another setting of care. 08:42 Acuity: ABRAHAN 2 rs 08:42 Method Of Arrival: Private Vehicle rs 08:42 Method Of Arrival: Wheelchair rs Triage Assessment: 09:00 Derm: Skin is pale. rs 09:45 General: Appears well developed, well groomed, Behavior is anxious, cooperative, rs complaining. . Pain: Complains of pain in arthritis pain in neck. Neuro: No deficits noted. Level of Consciousness is awake, alert, Oriented to person, place, time, event. Cardiovascular: Capillary refill is > 3 seconds Pulses are 2+ in left radial artery Reports lightheadedness, Denies fatigue, palpitations, syncope, Rhythm is junctional rhythm Chest pain is denied. Respiratory: No deficits noted. Respiratory effort is even, unlabored, Respiratory pattern is regular, symmetrical. Historical: - Allergies: No known drug Allergies; - Home Meds: 1. levothyroxine oral 2. losartan oral 3. carvedilol oral 4. oxygen 2L/min at night only 5. Novolin 70/30 [place] Sub-Q 6. Potassium Chloride Oral 7. Coumadin Oral 8. Folbig 9. Zolpidem Tartrate Oral 10. Omeprazole Oral 11. Furosemide Oral 12. Nitrostat SL 13. Triamcinolone Acetonide Topical 14. Aspirin Oral 15. Zolpidem Tartrate Oral 16. Zolpidem Tartrate Oral 17. Omeprazole Oral 18. Furosemide Oral 19. Nitrostat SL 20. Triamcinolone Acetonide Topical 21. Aspirin Oral - PMHx: Knee Contusion (October 15, 2016); CAD; CHF; DIABETES - IDDM; ATRIAL FIB; ARTHRITIS; KIDNEY STONES; Chest Pain (July 06, 2016); ANEMIA (July 06, 2016); Acute Renal/Kidney Failure, Nontraumatic (July 06, 2016); GERD; cardiac stents; Chronic Renal Failure/Insufficiency (November 26, 2016); End Stage Renal Disease (November 26, 2016); Hypotension (December 08, 2016); Renal Failure, Unspecified (December 08, 2016); - PSHx: APPENDECTOMY; - Tetanus: < 10 years. - Ebola Screening: : Patient negative for fever greater than or equal to 101.5 degrees Fahrenheit, and additional compatible Ebola Virus Disease symptoms. Patient denies exposure to infectious person. Patient denies travel to an Ebola-affected area in the 21 days before illness onset. No symptoms or risks identified at this time. . - Immunization history: Unable to Obtain. - Social history: Smoking status: unknown if patient ever smoked tobacco. Screenin:52 Infectious Disease Risk None. Abuse screen: Denies threats or abuse. Nutritional rs screening: obese and diabetic. Assessment: 10:45 Reassessment: Patient states feeling better. rs Vital Signs: 08:34 BP 108 / 56; Pulse 42; Resp 16; Temp 97.9; Pulse Ox 92% on R/A; Weight 129.27 kg; rs Height 6 ft. 1 in. (185.42 cm); Pain 0/10; 08:45 BP 97 / 64; Pulse 49; Resp 21; Pulse Ox 92% on R/A; Pain 0/10; rs 09:10 BP 123 / 74; Pulse 46; Resp 18; Pulse Ox 92% on R/A; Pain 0/10; rs 09:15 BP 120 / 76; Pulse 62; Resp 30; Pulse Ox 92% on R/A; Pain 0/10; rs 09:23 BP 117 / 85; Pulse 60; Resp 18; Pulse Ox 97% on 2 lpm NC; Pain 0/10; rs 09:26 BP 112 / 73; Pulse 64; Resp 24; Pulse Ox 97% on 2 lpm NC; Pain 0/10; rs 09:30 BP 126 / 77; Pulse 62; Resp 15; Pulse Ox 97% on 2 lpm NC; Pain 0/10; rs 09:45 BP 117 / 63; Pulse 65; Resp 15; Pulse Ox 95% on 2 lpm NC; Pain 0/10; rs 10:15 BP 106 / 63; Pulse 62; Resp 19; Pulse Ox 97% on 2 lpm NC; Pain 0/10; rs 10:30 BP 100 / 61; Pulse 47; Resp 21; Pulse Ox 98% on 2 lpm NC; Pain 0/10; rs 10:45 BP 108 / 60; Pulse 64; Resp 16; Pulse Ox 98% on 2 lpm NC; Pain 0/10; rs 11:00 BP 117 / 69; Pulse 61; Resp 16; Pulse Ox 99% on 2 lpm NC; Pain 0/10; rs 11:15 BP 116 / 68; Pulse 53; Resp 17; Pulse Ox 99% on 2 lpm NC; Pain 0/10; rs 11:44 BP 121 / 57; Pulse 61; Resp 21; Pulse Ox 97% on 2 lpm NC; Pain 0/10; rs 08:34 Body Mass Index 37.60 (129.27 kg, 185.42 cm) rs ED Course: 08:27 Patient arrived in ED. lm3 08:27 Elizabeth Mcwilliams MD is Private Physician. lm3 08:34 EKG done. (by ED staff). Reviewed by Jude Marcial MD. rs 08:38 EKG done per protocol. Performed by ED Staff. Labs ordered per protocol. X-ray done. rs X-ray ordered. 08:40 Notified ED Physician of patient's arrival and chief complaint. Dr. Marcial notified. Arm rs band placed on Bed in low position Call Light in Reach Gowned HOB Elevated Side rails up x1. Family accompanied patient. 08:40 Door closed. Noise minimized. Lights dimmed. Verbal reassurance given. Warm blanket rs given. 08:42 Crissy Hopson, ABDULLAHI is Primary Nurse. rs 08:54 Jude Marcial MD is Attending Physician. tl1 09:00 Missed attempts: 18 gauge X 2 in left forearm, per Kelly EMT-P. rs 09:10 Inserted saline lock: 20 gauge in right in right anterior shoulder Missed attempts: 22 rs gauge in right wrist. 09:32 Triage completed. rs 10:08 Port Xray Completed. quintin 10:08 CHEST; [place] [id number] In Process Unspecified. EDMS 10:53 Valuables Remains with patient. Cardiac Monitoring On for Nurse Monitoring only. Pulse rs Ox - RN Monitoring Only NIBP On - RN Monitoring Only. 11:06 Missed attempts: 20 gauge X 2 in right forearm, per RS. rs 11:39 Labs drawn. (by ED staff). Labs drawn per , drawn from right groin. rs 14:04 EKG attached Administered Medications: Completed: NS 0.9% 1000 ml 1000 ml IV at bolus in right antecubital once via [place] Tubing 09:20 Drug: NS 0.9% 1000 ml; Volume: 1000 ml; Route: IV; Rate: bolus; Site: right rs antecubital; Delivery: [place] Tubing; 11:37 Follow up: IV Status: Completed infusion; IV Intake: 600ml rs 09:22 Drug: Atropine:ADULT (with Bradycardia) 0.5 mg; Route: IVP; Rate: bolus; Infused Over: rs 1 mins; Site: right subclavian; 11:37 Follow up: Response: No adverse reaction rs 09:30 Drug: Atropine 0.5 mg; Route: IVP; Rate: bolus; Infused Over: 1 mins; Site: right rs antecubital; 11:37 Follow up: Response: No adverse reaction rs Intake: 11:37 IV: 600ml; Total: 600ml. rs Outcome: 10:57 ER care complete, transfer ordered by . tl1 11:45 [facility] Time: February 02, 2017 at 11:00 Patient's face sheet was faxed to accepting facility. Face Sheet included patient's name, address, age, gender, contact information and insurance information. 11:45 Condition: improved 11:45 Report given to 12:27 Report given to Giovani FERNANDO [facility] 12:27 Instructed on need for transfer 12:55 Patient left the ED. rs Signatures: Dispatcher [employer] Crissy Julien RN RN rs Abbott, Laura lea Leigh, Tom, MD MD tl1 Kasey Donohue Lisa lm3
== END 2017-02-02 12:56 | disposition short-term general hospital (02) ==
LOC: ER 08:25
DX: I95.1 Orthostatic hypotension (principal); I48.91 Unspecified atrial fibrillation; R42 Dizziness and giddiness; R53.1 Weakness; R60.0 Localized edema; R55 Syncope and collapse; I25.10 Atherosclerotic heart disease of native coronary artery without angina pectoris; N18.9 Chronic kidney disease, unspecified; E11.9 Type 2 diabetes mellitus without complications; Z95.5 Presence of coronary angioplasty implant and graft; Z79.82 Long term (current) use of aspirin; Z79.01 Long term (current) use of anticoagulants; Z79.899 Other long term (current) drug therapy; Z74.3 Need for continuous supervision
CPT/HCPCS: 71010; 80053; 83735; 83880; 84443; 84484; 85025; 85610; 93005; 96361; 96374; 99285; A0425; A0427